=== PATIENT | male | born 1975 | race African-American/Black ===

== ENCOUNTER 2019-02-27 12:22 | Observation (INO) | payer OTHER ==
[2019-02-27 13:09] LABS: Absolute Lymphocytes (CBC) 1.3 K/uL (0.7-4.9); Basophils % 0.6 % (0-1.3); Lymphocytes % 33.1 % (15.3-44.8); MPV 10.6 fL (7.6-11.3); RBC Red Blood Cell Count 4.37 M/uL (3.86-4.86)
[2019-02-27 13:22] LABS: BUN Blood Urea Nitrogen 12 mg/dL (7-18); Bicarbonate 29 mmol/L (21-32); Glucose Level 87 mg/dL (74-106); Potassium 3.8 mmol/L (3.5-5.1); Sodium Level 141 mmol/L (136-145); Troponin (Emerg Dept Use Only) < 0.02 ng/mL (0.0-0.045)
--- NOTE | 2019-02-27 15:30 | EDPHYS ---
Physician Documentation [facility] Name: Fracisco Elam Age: 43 yrs Sex: Male : 1975 Arrival Date: 02/27/2019 Time: 12:29 Bed 6 Private MD: ED Physician Love Barone HPI: 02/27 13:03 This 43 yrs old Male presents to ER via EMS with complaints of chest pain. ma2 13:03 The patient or guardian reports chest pain that is located primarily in the substernal ma2 area. Onset: suddenly, gradually, 1 hour(s) ago. The pain does not radiate. Associated signs and symptoms: Pertinent positives: chest pain, Pertinent negatives: cough, headache, lower extremity swelling, lightheadedness, near syncope, vomiting. The chest pain is described as a heaviness. Duration: The patient or guardian reports a single episode, that lasted 30 minute(s). Severity of pain: At its worst the pain was moderate in the emergency department the pain is unchanged. The patient has experienced a previous episode. COMMUNICATION SPEC: 15:53 LMP N/A - pt is MALE tw2 Historical: - Allergies: 15:53 No Known Allergies; tw2 - Home Meds: 15:53 cyclobenzaprine 10 mg Oral tab 1 tab 2 times per day [Active]; diphenhydramine HCl 25 tw2 mg Oral cap 1 cap at bedtime for allergies [Active]; naproxen 375 mg Oral tab 1 tab 2 times per day [Active]; sertraline 100 mg oral tab 1 tab once daily [Active]; trazodone 50 mg Oral tab 0.5 tab 3 times per day [Active]; - PMHx: 15:53 Insomnia; Anxiety; Alcoholism; Depression; Back pain; tw2 - Immunization history:: Adult Immunizations. - Social history:: Patient/guardian denies using alcohol, street drugs, The patient lives with family, with spouse, Smoking status: . - Family history:: not pertinent, pertinent for heart disease. - Ebola Screening: : Patient denies travel to an Ebola-affected area in the 21 days before illness onset. ROS: 13:03 Constitutional: Negative for fever, chills, and weight loss. ma2 13:03 All other systems are negative. Exam: 13:03 Constitutional: This is a well developed, well nourished patient who is awake, alert, ma2 and in no acute distress. Chest/axilla: Normal chest wall appearance and motion. Nontender with no deformity. No lesions are appreciated. Cardiovascular: Regular rate and rhythm with a normal S1 and S2. No gallops, murmurs, or rubs. Normal PMI, no JVD. No pulse deficits. Respiratory: Lungs have equal breath sounds bilaterally, clear to auscultation and percussion. No rales, rhonchi or wheezes noted. No increased work of breathing, no retractions or nasal flaring. Abdomen/GI: Soft, non-tender, with normal bowel sounds. No distension or tympany. No guarding or rebound. No evidence of tenderness throughout. MS/ Extremity: Pulses equal, no cyanosis. Neurovascular intact. Full, normal range of motion. Neuro: Awake and alert, GCS 15, oriented to person, place, time, and situation. Cranial nerves II-XII grossly intact. Motor strength 5/5 in all extremities. Sensory grossly intact. Cerebellar exam normal. Normal gait. Vital Signs: 12:35 BP 133 / 90; Pulse 46; Resp 17; Temp 97.9(TE); Pulse Ox 100% on R/A; Weight 54.88 kg tw2 (R); Height 5 ft. 4 in. (162.56 cm); Pain 5/10; 13:17 BP 130 / 76; Pulse 46; Resp 17; Pulse Ox 100% on R/A; tw2 14:14 BP 120 / 78; Pulse 43; Resp 13; Pulse Ox 100% on R/A; tw2 14:59 BP 124 / 77; Pulse 48; Resp 15; Pulse Ox 100% on R/A; tw2 15:49 BP 117 / 74; Pulse 44; Resp 17; Pulse Ox 100% on R/A; tw2 16:50 BP 121 / 80; Pulse 50; Resp 12; Pulse Ox 100% on R/A; tw2 17:50 BP 129 / 81; Pulse 48; Resp 10; Pulse Ox 100% on R/A; tw2 12:35 Body Mass Index 20.77 (54.88 kg, 162.56 cm) tw2 MDM: 12:33 Patient medically screened. ma2 13:03 Differential diagnosis: abnormal EKG, acute myocardial infarction, anxiety, coronary ma2 artery disease chest wall pain, stable angina. HEART Score: History: Moderately Suspicious (1), ECG: Non specific repolarization disturbance / LBTB / PM (1), Age: < or = 45 years (0), Risk Factors: 1 or 2 risk factors (1), Troponin: < or = 1 x Normal Limit (0), Total Score = 3. 14:54 The patient was given aspirin in the Emergency Department. Data reviewed: vital signs, ma2 nurses notes, lab test result(s), EKG. Counseling: I had a detailed discussion with the patient and/or guardian regarding: the historical points, exam findings, and any diagnostic results supporting the discharge/admit diagnosis, the presence of at least one elevated blood pressure reading (>120/80) during this emergency department visit, the need for outpatient follow up. 02/27 15:29 Order name: CBC with Automated Diff EDMS 02/27 15:29 Order name: Basic Metabolic Panel EDMS 02/27 15:12 Order name: Diet Ada 2000 Neptali; Complete Time: 15:30 tw2 02/27 15:29 Order name: Troponin (Emerg Dept Use Only) EDMS 02/27 16:18 Order name: Chest Single View EDMS 02/27 17:35 Order name: Urine Dipstick--Ancillary (enter results) ms 02/27 16:18 Order name: EKG Electrocardiogram EDMS Administered Medications: No medications were administered Disposition: 02/27/19 14:55 Hospitalization ordered by Josue Dozier for Observation. Preliminary diagnosis is Other chest pain. - Bed requested for Telemetry/MedSurg (observation). - Status is Observation. tw2 - Condition is Stable. - Problem is new. - Symptoms are unchanged. UTI on Admission? No Signatures: Dispatcher [employer] EDAR Myah Bagley RN RN Jessica Villagran RN RN tw2 Love Barone MD MD ma2 Corrections: (The following items were deleted from the chart) 17:44 14:55 Hospitalization Ordered by Josue Dozier MD for Observation. Preliminary diagnosis dw is Other chest pain. Bed requested for Telemetry/MedSurg (observation). Status is Observation. Condition is Stable. Problem is new. Symptoms are unchanged. UTI on Admission? No. ma2 18:34 17:44 02/27/2019 14:55 Hospitalization Ordered by Josue Dozier MD for Observation. tw2 Preliminary diagnosis is Other chest pain. Bed requested for Telemetry/MedSurg (observation). Status is Observation. Condition is Stable. Problem is new. Symptoms are unchanged. UTI on Admission? No. dw
--- NOTE | 2019-02-27 15:30 | ER ---
Nurse's Notes [facility] Name: Fracisco Elam Age: 43 yrs Sex: Male : 1975 Arrival Date: 02/27/2019 Time: 12:29 Bed 6 Private MD: Diagnosis: Other chest pain Presentation: 02/27 12:00 Presenting complaint: EMS states: pt was at the [facility] for regular check up appt, they tw2 called us because pt started having Chest pain, no radiation, substernal pain that lasted 30 mins, he experienced an episode similar to this 2-3 weeks ago, pt states his father from a massive heart attack, pt is very active runs, etc. pt is bradycardic in 40's, bp 130/71, VA administered 324 ASA prior to our arrival. Transition of care: patient was not received from another setting of care. Onset of symptoms was February 27, 2019. Risk Assessment: Do you want to hurt yourself or someone else? Patient reports no desire to harm self or others. Initial Sepsis Screen: Does the patient meet any 2 criteria? No. Patient's initial sepsis screen is negative. Does the patient have a suspected source of infection? No. Patient's initial sepsis screen is negative. Care prior to arrival: Medication(s) given: ASA, 325 mg, x 1. 12:00 Method Of Arrival: EMS: [facility] tw2 12:00 Acuity: LOUISA 3 tw2 COMPLEX MANAGER: 15:53 LMP N/A - pt is MALE tw2 Historical: - Allergies: 15:53 No Known Allergies; tw2 - Home Meds: 15:53 cyclobenzaprine 10 mg Oral tab 1 tab 2 times per day [Active]; diphenhydramine HCl 25 tw2 mg Oral cap 1 cap at bedtime for allergies [Active]; naproxen 375 mg Oral tab 1 tab 2 times per day [Active]; sertraline 100 mg oral tab 1 tab once daily [Active]; trazodone 50 mg Oral tab 0.5 tab 3 times per day [Active]; - PMHx: 15:53 Insomnia; Anxiety; Alcoholism; Depression; Back pain; tw2 - Immunization history:: Adult Immunizations. - Social history:: Patient/guardian denies using alcohol, street drugs, The patient lives with family, with spouse, Smoking status: . - Family history:: not pertinent, pertinent for heart disease. - Ebola Screening: : Patient denies travel to an Ebola-affected area in the 21 days before illness onset. Screenin:18 Abuse screen: Denies threats or abuse. Nutritional screening: No deficits noted. tw2 Tuberculosis screening: No symptoms or risk factors identified. Fall Risk None identified. Assessment: 12:00 General: Appears in no apparent distress. slender, well groomed, Behavior is calm, tw2 cooperative, appropriate for age. Pain: Complains of pain in chest Pain does not radiate. Neuro: Level of Consciousness is awake, alert, obeys commands, Oriented to person, place, time, situation. Cardiovascular: Heart tones S1 S2 Patient's skin is warm and dry. Respiratory: Airway is patent Respiratory effort is even, unlabored, Respiratory pattern is regular, symmetrical, Breath sounds are clear bilaterally. GI: No signs and/or symptoms were reported involving the gastrointestinal system. Abdomen is flat, Bowel sounds present X 4 quads. : No signs and/or symptoms were reported regarding the genitourinary system. EENT: No signs and/or symptoms were reported regarding the EENT system. Derm: No signs and/or symptoms reported regarding the dermatologic system. Musculoskeletal: Range of motion: intact in all extremities. 13:17 Reassessment: Patient appears in no apparent distress at this time. No changes from tw2 previously documented assessment. Patient and/or family updated on plan of care and expected duration. Pain level reassessed. Patient is alert, oriented x 3, equal unlabored respirations, skin warm/dry/pink. 14:14 Reassessment: Patient appears in no apparent distress at this time. No changes from tw2 previously documented assessment. Patient and/or family updated on plan of care and expected duration. Pain level reassessed. Patient is alert, oriented x 3, equal unlabored respirations, skin warm/dry/pink. 15:00 Reassessment: Patient appears in no apparent distress at this time. No changes from tw2 previously documented assessment. Patient and/or family updated on plan of care and expected duration. Pain level reassessed. Patient is alert, oriented x 3, equal unlabored respirations, skin warm/dry/pink. 15:49 Reassessment: Patient appears in no apparent distress at this time. No changes from tw2 previously documented assessment. Patient and/or family updated on plan of care and expected duration. Pain level reassessed. Patient is alert, oriented x 3, equal unlabored respirations, skin warm/dry/pink. pt offered sandwich chips and drink, pt refused states " is bringing me some food", pt given large glass of water at this time. 16:50 Reassessment: Patient appears in no apparent distress at this time. No changes from tw2 previously documented assessment. Patient and/or family updated on plan of care and expected duration. Pain level reassessed. Patient is alert, oriented x 3, equal unlabored respirations, skin warm/dry/pink. 17:50 Reassessment: Patient appears in no apparent distress at this time. No changes from tw2 previously documented assessment. Vital Signs: 12:35 BP 133 / 90; Pulse 46; Resp 17; Temp 97.9(TE); Pulse Ox 100% on R/A; Weight 54.88 kg tw2 (R); Height 5 ft. 4 in. (162.56 cm); Pain 5/10; 13:17 BP 130 / 76; Pulse 46; Resp 17; Pulse Ox 100% on R/A; tw2 14:14 BP 120 / 78; Pulse 43; Resp 13; Pulse Ox 100% on R/A; tw2 14:59 BP 124 / 77; Pulse 48; Resp 15; Pulse Ox 100% on R/A; tw2 15:49 BP 117 / 74; Pulse 44; Resp 17; Pulse Ox 100% on R/A; tw2 16:50 BP 121 / 80; Pulse 50; Resp 12; Pulse Ox 100% on R/A; tw2 17:50 BP 129 / 81; Pulse 48; Resp 10; Pulse Ox 100% on R/A; tw2 12:35 Body Mass Index 20.77 (54.88 kg, 162.56 cm) tw2 ED Course: 12:00 Bed in low position. Call light in reach. nursing home admissions director on. Pulse ox on. NIBP on. tw2 12:05 EKG completed in triage. Results shown to MD. tw2 12:29 Patient arrived in ED. ms 12:32 Jessica Ramsay RN is Primary Nurse. tw2 12:33 Love Barone MD is Attending Physician. ma2 12:34 Triage completed. tw2 12:34 Arm band placed on. tw2 12:45 Inserted saline lock: 22 gauge in right antecubital area, using aseptic technique. tw2 Blood collected. Patient admitted, IV remains in place. 14:54 Josue Dozier MD is Hospitalizing Provider. ma2 16:18 Chest Single View In Process Unspecified. EDMS 18:16 No provider procedures requiring assistance completed. tw2 Administered Medications: No medications were administered Outcome: 14:55 Decision to Hospitalize by Provider. ma2 18:17 Admitted to Med/surg accompanied by tech, via wheelchair, room 205, with chart, Report tw2 called to ANGELICA Matos 18:17 Condition: stable 18:17 Instructed on the need for admit. 18:34 Patient left the ED. tw2 Signatures: Dispatcher [employer] EDBrianna Menendez ms, Tara, RN RN tw2 Love Barone MD MD ma2
--- NOTE | 2019-02-27 18:10 | P.HP ---
Certification for Inpatient Patient admitted to: Observation With expected LOS: <2 Midnights Practitioner: I am a practitioner with admitting privileges, knowledge of patient current condition, hospital course, and medical plan of care. Services: Services provided to patient in accordance with Admission requirements found in Title 42 Section 412.3 of the Code of Federal Regulations Patient History Date of Service: 02/27/19 Primary Care Provider: At the [facility] Reason for admission: Chest pain History of Present Illness: This is a 43-year-old relatively healthy male who presents to the ER with chest pain. He stated that he has had 2 episodes of these chest tightness that radiates to the back. It is located on the left side. This time the episode lasted about 30 min. This is associated with increased work of breathing. He was at the [facility] and his primary care office and was sent over here due to this chest pain. An EKG was done at the [facility] in his clinic which was fairly unremarkable. Patient states he has a heavy alcohol history use in the past. But for the last 2-3 weeks, he has cut down alcohol consumption of 6-8 beers per week. Prior to that he was drinking anywhere from 24th 25 beers per week on average. He states that he is not a smoker use any other drugs. Family history is remarkable for a father with a massive myocardial infarction at age 62, leading to . Since he had 2 episodes like this, and the history of in his father. He decided to come to the emergency room. In the ER, blood pressure was 132/90, heart rate of 46, respirations of 16, afebrile at 97.9 and 100% on room air. His labs were unremarkable. Troponin was negative x1, EKG was normal. Chest x-ray without any acute abnormalities. In the ER, he did not receive any medications. At the time of my exam, patient was alert oriented x3, hemodynamically stable in no acute distress. His chest pain had resolved. Home medications list reviewed: Yes - Past Medical/Surgical History Past Medical History: Patient denies medical history - Social History Smoking Status: Never smoker Alcohol use: Yes Review of Systems 10-point ROS is otherwise unremarkable Physical Examination - Physical Exam General: Alert, In no apparent distress, Oriented x3 HEENT: Atraumatic, PERRLA, Mucous membr. moist/pink, EOMI, Sclerae nonicteric Neck: Supple, 2+ carotid pulse no bruit, No LAD, Without JVD or thyroid abnormality Respiratory: Clear to auscultation bilaterally, Normal air movement Cardiovascular: Regular rate/rhythm, Normal S1 S2 Gastrointestinal: Normal bowel sounds, No tenderness Musculoskeletal: No tenderness Integumentary: No rashes Neurological: Normal gait, Normal speech, Normal strength at 5/5 x4 extr, Normal tone, Normal affect Lymphatics: No axilla or inguinal lymphadenopathy - Studies Laboratory Data (last 24 hrs) 02/27/19 12:20: Sodium 141, Potassium 3.8, BUN 12, Creatinine 0.87, Glucose 87 02/27/19 12:20: WBC 4.0 L, Hgb 13.9, Hct 41.0, Plt Count 154 Assessment and Plan - Problems (Diagnosis) (1) Chest pain Current Visit: Yes Status: Acute Plan: Heart score: 1, family history, heavy alcohol use -Troponin negative x1. Trend troponins. -EKG normal -echo ordered, pending -chest pain guidelines: Beta-flo, aspirin, Plavix, statin and XAVIER -will consult cardiology if any abnormalities found -monitor via tele Qualifiers: Chest pain type: unspecified Qualified Code(s): R07.9 - Chest pain, unspecified - Plan DVT prophylaxis: Aspirin/Plavix GI prophylaxis: None Diet: Heart healthy Disposition: Pending symptomatic improvement and cardiac workup. Anticipate discharge home in the next 24 hr of cardiac workup is negative with outpatient cardiology followup. Discharge Plan: Home Plan to discharge in: 24 Hours - Advance Directives Does patient have a Living Will: No Does patient have a Durable POA for Healthcare: No Time Spent Managing Pts Care (In Minutes): 45
[2019-02-27] MEDS ORDERED: NITROGLYCERIN 0.4 MG/TAB SL PRN (19:16)
[2019-02-27] MEDS ORDERED: MORPHINE 4 MG/ML SYR IV PRN (19:16)
[2019-02-27 19:53] VITALS: BMI 20.7
[2019-02-27] MEDS ORDERED: ATORVASTATIN 40 MG TAB PO SCH (21:00)
[2019-02-27] MEDS ORDERED: TRAZODONE 50 MG TABLET PO PRN (22:37)
[2019-02-27] MEDS ORDERED: DIPHENHYDRAMINE 25 MG TAB/CAP PO PRN (22:37)
[2019-02-28 04:20] LABS: Absolute Lymphocytes (CBC) 1.4 K/uL (0.7-4.9); Basophils % 0.9 % (0-1.3); Hematocrit 36.8 % (39.6-49.0); Lymphocytes % 36.9 % (15.3-44.8); MPV 9.9 fL (7.6-11.3); RBC Red Blood Cell Count 3.94 M/uL (4.33-5.43)
[2019-02-28 04:27] LABS: BUN Blood Urea Nitrogen 14 mg/dL (7-18); Bicarbonate 28 mmol/L (21-32); Glucose Level 93 mg/dL (74-106); Potassium 4.1 mmol/L (3.5-5.1); Sodium Level 143 mmol/L (136-145)
--- NOTE | 2019-02-28 07:28 | EKG ---
Test Date: 2019-02-27 Test Time: 12:09:49 Leather Piece Inspector: MIKEY MEASUREMENT RESULTS: Intervals: Rate: 41 TN: 194 QRSD: 88 QT: 496 QTc: 409 [place]: P: 82 TN: 194 QRS: 39 T: 38 INTERPRETIVE STATEMENTS: Marked sinus bradycardia Abnormal ECG No previous ECG available for comparison Electronically Signed On 02-28-19 07:27:53 CDT by Dereje Rees
[2019-02-28 08:35] VITALS: BP 116/66
[2019-02-28] MEDS ORDERED: ASPIRIN EC 81 MG TAB PO SCH (09:00)
[2019-02-28] MEDS ORDERED: CLOPIDOGREL 75 MG TABLET PO SCH (09:00)
[2019-02-28] MEDS ORDERED: LISINOPRIL 10 MG TAB PO SCH (09:00)
[2019-02-28] MEDS ORDERED: SERTRALINE HCL 100 MG TAB PO SCH (09:00)
[2019-02-28] MEDS ORDERED: METOPROLOL TAR 50 MG TAB PO SCH (09:00)
[2019-02-28 10:13] VITALS: TEMP 97.8
--- NOTE | 2019-02-28 12:31 | ECHO ---
HEIGHT: 5 ft 4 in WEIGHT: 121 lb 0 oz DATE OF STUDY: 02/28/[address]: Josue Dozier MD 2-DIMENSIONAL: YES M.MODE: YES DOPPLER: YES COLOR FLOW: YES TDS: NO PORTABLE: NO DEFINITY: NO BUBBLE STUDY: NO DIAGNOSIS: CHEST PAIN CARDIAC HISTORY: CATHERIZATION: NO SURGERY: NO PROSTHETIC VALVE: NO PACEMAKER: NO MEASUREMENTS (cm) DIASTOLIC (NORMALS) SYSTOLIC (NORMALS) IVSd 0.9 (0.6-1.2) LA Diam 2.8 (1.9-4.0) LVEF 56% LVIDd 4.0 (3.5-5.7) LVIDs 2.9 (2.0-3.5) %FS 29% LVPWd 1.0 (0.6-1.2) Ao Diam 2.7 (2.0-3.7) 2 DIMENSIONAL ASSESSMENT: RIGHT ATRIUM: NORMAL LEFT ATRIUM: NORMAL RIGHT VENTRICLE: NORMAL LEFT VENTRICLE: NORMAL TRICUSPID VALVE: NORMAL MITRAL VALVE: NORMAL PULMONIC VALVE: NORMAL AORTIC VALVE: NORMAL PERICARDIAL EFFUSION: NONE AORTIC ROOT: NORMAL LEFT VENTRICULAR WALL MOTION: NORMAL DOPPLER/COLOR FLOW: TRACE TRICUSPID REGURGITATION. NORMAL RIGHT VENTRICULAR SYSTOLIC PRESSURE. COMMENTS: NORMAL LEFT VENTRICULAR EJECTION FRACTION. TRACE TRICUSPID REGURGITATION. SINUS BRADYCARDIA 39 BEATS PER MINUTE. TECHNOLOGIST: Rudolph KELLER
--- NOTE | 2019-02-28 13:41 | P.SSS ---
Patient History Date of Service: 02/28/19 Primary Care Provider: At the [facility] Reason for admission: Chest pain History of Present Illness: This is a 43-year-old relatively healthy male who presents to the ER with chest pain. He stated that he has had 2 episodes of these chest tightness that radiates to the back. It is located on the left side. This time the episode lasted about 30 min. This is associated with increased work of breathing. He was at the [facility] and his primary care office and was sent over here due to this chest pain. An EKG was done at the [facility] in his clinic which was fairly unremarkable. Patient states he has a heavy alcohol history use in the past. But for the last 2-3 weeks, he has cut down alcohol consumption of 6-8 beers per week. Prior to that he was drinking anywhere from 24th 25 beers per week on average. He states that he is not a smoker use any other drugs. Family history is remarkable for a father with a massive myocardial infarction at age 62, leading to . Since he had 2 episodes like this, and the history of in his father. He decided to come to the emergency room. In the ER, blood pressure was 132/90, heart rate of 46, respirations of 16, afebrile at 97.9 and 100% on room air. His labs were unremarkable. Troponin was negative x1, EKG was normal. Chest x-ray without any acute abnormalities. In the ER, he did not receive any medications. At the time of my exam, patient was alert oriented x3, hemodynamically stable in no acute distress. His chest pain had resolved. Allergies No Known Allergies Allergy (Verified 02/27/19 19:48) Home medications list reviewed: Yes Home Medications: Diphenhydramine [Benadryl*] 1 cap PO BEDTIME PRN 02/27/19 Sertraline [Zoloft*] 1.5 tab PO DAILY 02/27/19 Trazodone HCl 0.5 tab PO BEDTIME PRN 02/27/19 - Past Medical/Surgical History Has patient received pneumonia vaccine in the past: No Diabetic: No -: Anxiety -: Alcoholism -: Depression -: Back pain -: Insomia -: PTSD -: eye sx - Social History Smoking Status: Never smoker Alcohol use: Yes CD- Drugs: No Caffeine use: Yes Place of Residence: Home Review of Systems 10-point ROS is otherwise unremarkable Physical Examination - Vital Signs Temperature: 97.8 F Blood Pressure: 116/66 Pulse: 49 Respirations: 18 Pulse Ox (%): 97 - Physical Exam General: Alert, In no apparent distress, Oriented x3 HEENT: Atraumatic, PERRLA, Mucous membr. moist/pink, EOMI, Sclerae nonicteric Neck: Supple, 2+ carotid pulse no bruit, No LAD, Without JVD or thyroid abnormality Respiratory: Clear to auscultation bilaterally, Normal air movement Cardiovascular: Normal S1 S2, Irregular heart rate/rhythm (sinus bradycardia, ) Gastrointestinal: Normal bowel sounds, No tenderness Musculoskeletal: No tenderness Integumentary: No rashes Neurological: Normal gait, Normal speech, Normal strength at 5/5 x4 extr, Normal tone, Normal affect Lymphatics: No axilla or inguinal lymphadenopathy - Diagnosis (Problem(s)) (1) Chest pain Current Visit: Yes Status: Acute Plan: Heart score: 1, family history, heavy alcohol use -Troponin negative x3 -EKG normal -echo with 56% EF, normal; sinus bradycardia noted. His diagnosis/treatment plan was discussed with him, all questions were answered and he verbalized understanding. He was discharged home in a safe and stable manner. Qualifiers: Chest pain type: unspecified Qualified Code(s): R07.9 - Chest pain, unspecified (2) Sinus bradycardia Current Visit: Yes Status: Acute Plan: Asymptomatic, - patient seems to have resting HR in a lower range. - ER precuations given - Patient to follow up with cardiology in 2-3 days for further evaluation. - Disposition Discharge Date: 02/28/19 Disposition: ROUTINE DISCHARGE Condition: GOOD Patient Discharge Instructions: Please follow up with your primary care physicain in 2-3 days. Please follow up with cardiology in 2-3 days for low heart rate. Return to the emergency room for worsening symptoms Diet: Regular Activity: Ad marko
[2019-02-28 13:58] VITALS: O2SAT 100
--- NOTE | 2019-02-28 15:55 | RAD REPORT ---
EXAM DESCRIPTION: RAD CHEST SINGLE VIEW CLINICAL HISTORY: Chest pain. COMPARISON: None. TECHNIQUE: Portable chest examination performed 1220 hours. FINDINGS: The lung maxwell are clear. Nipple shadow is seen over the lower left chest. Heart size and vasculature are within normal limits. No pneumothorax or pleural effusion. No acute bone or aortic finding. IMPRESSION: Negative portable chest.
== END 2019-02-28 14:12 | disposition home or self-care (01) ==
LOC: EDSEX 12:22 → ER 12:22 → ERHOLD 17:01 → 2ND 18:18
PROVIDERS: ADMIT Family Medicine; ATTEND Family Medicine
DX: R07.9 Chest pain, unspecified (principal); R00.1 Bradycardia, unspecified; F41.9 Anxiety disorder, unspecified
CPT/HCPCS: 93005; 93306; 85025 ×2; 80048 ×2; 36415; 80061; 84484 ×3; 71045; 99285; G0378 ×3